=== PATIENT | female | born 1985 | race African-American/Black ===

== ENCOUNTER 2021-01-27 09:22 | Emergency (ER) | payer BC ==
[~2021-01-27] VITALS: Ht 172.7 cm; Wt 100.0 kg
[2021-01-27 10:02] VITALS: BP 142/73
[2021-01-27 12:27] LABS: BASOPHILS % 0.3 % (0.0-2.0); EOSINOPHILS % 1.9 % (0.0-5.0); HEMATOCRIT. 42.3 % (36.0-48.0); HEMOGLOBIN. 13.8 g/dL (12.0-16.0); LYMPHOCYTES % 29.6 % (20.0-50.0); MEAN CORPUSCULAR HEMOGLOBIN 29.9 pg (28.0-32.0); MEAN CORPUSCULAR VOLUME 91.7 fL (81.0-99.0); MEAN PLATELET VOLUME 8.7 fl (7.4-10.4); MONOCYTES % 9.1 % (2.0-8.0); NEUTROPHILS % 59.1 % (40.0-76.0); PLATELET 279 x1000/uL (130-400); RED BLOOD CELL COUNT 4.61 mill/uL (4.2-5.4); RED CELL DISTRIBUTION WIDTH 13.6 % (11.6-14.6)
[2021-01-27 12:29] LABS: CHLORIDE 105 mEq/L (98-107)
[2021-01-27 12:54] LABS: B-HCG QUANTITATIVE 985 mIU/mL (<3)
[2021-01-27] MEDS ORDERED: TOPUD PO (12:55)
== END 2021-01-27 13:14 | disposition home or self-care (01) ==
LOC: ER 09:22
DX: O02.1 Missed abortion (principal)
CPT/HCPCS: 36415; 76830; 76856; 80053; 81025; 84702; 85025; 86850; 86900; 99284